=== PATIENT | male | born 1970 | race Caucasian/White ===

== ENCOUNTER 2020-01-31 11:36 | Inpatient (IN) | payer OTHER, SELFPAY ==
[2020-01-31] VITALS (12 sets, daily range): BP systolic 142–237; BP diastolic 80–135; PULSE 70–97; RESP 14–24; TEMP 36.4–36.8; O2SAT 95–99
--- NOTE | 2020-01-31 12:02 | XR_ITS ---
WS: [id number] XR chest 1V portable [id number] REASON FOR EXAM: cp FINDINGS: Comparisons were made to December 29, 2011. The heart is normal in size configuration. The lung bang are well aerated. There is no pulmonary edema. Pneumonia, pleural effusion. There is no pneumothorax. The hilum and apices are normal. No osseous abnormalities. XR/XR chest 1V portable [id number] IMPRESSION: Negative chest for acute findings.
--- NOTE | 2020-01-31 12:02 | ECG_ITS ---
[facility] Test Date: 2020-01-31 Pat Name: Blake Espino Department: Room: Gender: Male Financial Operations Clerk: : 1970 Requested By: Sophie Mistry Order Number: [id number] Yelena MD: Thiago Cerna M.D. Measurements Intervals [place] Rate: 81 P: 45 ME: 151 QRS: -12 QRSD: 101 T: 52 QT: 380 QTc: 443 Interpretive Statements SINUS RHYTHM POSSIBLE LEFT ATRIAL ENLARGEMENT [-0.1mV P WAVE IN V1/V2] No previous ECG available for comparison Electronically Signed On 01-31-2020 19:20:24 CDT by Thiago Cerna M.D. [id number]
[2020-01-31] MEDS: nitroglycerin 0.4 mg sublingual Tablet SUBLINGUAL ×3 (12:18→12:40)
[2020-01-31] MEDS: aspirin 81 mg Chew Tablet 324 MG PO (12:18)
[2020-01-31 12:25] LABS: Basophils # 0.1 10^3/uL (0.0-0.1); Basophils % 0.8 %; Eosinophils # 0.1 10^3/uL (0.0-0.8); Eosinophils % 1.1 %; Hematocrit 43.6 % (42.0-52.0); Hemoglobin 15.1 g/dL (11.7-16.6); Lymphocytes # 1.8 10^3/uL (0.8-4.8); Lymphocytes % 20.2 %; Mean Corpuscular HGB Conc 34.6 g/dL (30.0-36.0); Mean Corpuscular Hemoglobin 32.3 pg (28.0-34.0); Mean Corpuscular Volume 93.4 fL (80-94); Mean Platelet Volume 11.6 fL (7.4-10.4); Monocytes # 0.5 10^3/uL (0.2-0.9); Monocytes % 5.9 %; Neutrophils # 6.5 10^3/uL (1.8-7.7); Neutrophils % 71.6 %; Nucleated Red Blood Cells % 0 %; Platelet Count 166 10^3/cmm (130-400); Red Blood Count 4.67 10^6/uL (4.1-5.3); Red Cell Distribution Width 12.4 % (12.1-15.1)
--- NOTE | 2020-01-31 12:30 | ED_ITS ---
HPI - Chest Pain General: Chief Complaint: Chest Pain Stated Complaint: HIGH BP Time Seen by Provider: 01/31/20 12:02 Source: patient Mode of arrival: ambulatory Limitations: no limitations History of Present Illness: HPI narrative: 49-year-old male who states that over the last 5 days he has been having intermittent chest pains. He states that the pain just start randomly and lasts 15 to 20 minutes. Patient states he currently has pain now that is a pressure type pain. Patient was going over [facility] and had blood pressure of over 200s. He states he has had very hi gh blood pressures. Denies any worsening improving factors at this time. MD complaint: chest pain Associated symptoms: Deny abdominal pain, dyspnea, fever(s), nausea or vomiting Review of Systems Const: Denies: fever(s), chills, body aches or change in appetite Eyes: Denies: blurry vision or eye discomfort ENMT: Denies: throat pain or dental pain Card: Denies: chest pain Resp: Denies: dyspnea GI: Denies: abdominal pain, nausea, vomiting or diarrhea : Denies: dysuria Musc: Denies: neck pain or back pain Skin/Breast: Denies: rash Neuro: Denies: headache(s) Psych: Denies: depression Kristian/Lymph: Denies: easy bruising All/Imm: Denies: urticaria PFSH ED PFSH: Social History Smoking and tobacco status: current every day smoker Physical Exam Const: COMMON NORMALS: no acute distress, patient oriented x3 and healthy appearing HENMT: COMMON NORMALS: normocephalic and atraumatic HEAD & SCALP: normocephalic and atraumatic Eye: COMMON NORMALS: Equal, round and reactive pupils present and EOMs intact bilaterally PUPIL: Yes Equal, round and reactive pupils present Neck/C-Spine: COMMON NORMALS: full ROM and supple Chest: COMMONS NORMALS: normal inspection of the chest and normal palpation of entire chest wall Resp: COMMON NORMALS: normal respiratory effort, No retractions, No use of accessory muscles and clear to auscultation bilaterally AUSCULTATION: clear to auscultation bilaterally Cardio: COMMON NORMALS: regular rate, regular rhythm and No murmurs present (Cardio) RATE: regular rate RHYTHM: regular rhythm GI: COMMON NORMALS: Normal to inspection, nondistended, normoactive bowel sounds present, Soft to palpation, non-tender and no masses PALPATION: Yes Soft to palpation Extremity: COMMON NORMALS: normal to inspection and full ROM Neuro: COMMON NORMALS: patient oriented x3, moves all extremities and no focal motor deficits Psych: COMMON NORMALS: mental status grossly normal, Normal thought process present and cooperative THOUGHT PROCESS: Normal thought process present Skin: COMMON NORMALS: no rashes or lesions noted and no wounds GENERAL SKIN EXAM: no rashes or lesions noted Course Vital Signs: Vital signs: Vital Signs Temperature 98.2 F 01/31/20 11:39 Pulse Rate 74 01/31/20 15:51 Respiratory Rate 14 01/31/20 15:51 Blood Pressure 194/113 01/31/20 15:51 Pulse Oximetry 97 01/31/20 15:51 MDM - Chest Pain MDM Narrative: Medical decision making narrative: Patient presents with high blood pressure along with chest pain. Patient is continued to be hypertensive here and has risk factors for his chest pain. I spoke to hospitalist and will admit at this time. Patient's initial and repeat troponins are negative. Lab Data: Labs: Lab Results 01/31/20 01/31/20 01/31/20 Range/Units 12:15 12:15 12:15 WBC 9.0 (4.0-10.0) 10^3/ uL RBC 4.67 (4.1-5.3) 10^6/u L Hgb 15.1 (11.7-16.6) g/dL Hct 43.6 (42.0-52.0) % MCV 93.4 (80-94) fL MCH 32.3 (28.0-34.0) pg MCHC 34.6 (30.0-36.0) g/dL RDW 12.4 (12.1-15.1) % Plt Count 166 (130-400) 10^3/c mm MPV 11.6 H (7.4-10.4) fL Neut % (Auto) 71.6 % Lymph % (Auto) 20.2 % [place] % (Auto) 5.9 % Eos % (Auto) 1.1 % Baso % (Auto) 0.8 % Neut # (Auto) 6.5 (1.8-7.7) 10^3/u L Lymph # (Auto) 1.8 (0.8-4.8) 10^3/u L [place] # (Auto) 0.5 (0.2-0.9) 10^3/u L Eos # (Auto) 0.1 (0.0-0.8) 10^3/u L Baso # (Auto) 0.1 (0.0-0.1) 10^3/u L Nucleated RBC % (a uto) 0 % Nucleated RBCs # 0.0 /100WBC Sodium 142 (136-145) mmol/L Potassium 3.3 L (3.5-5.1) mmol/L Chloride 103 (98-107) mmol/L Carbon Dioxide 26 (22-29) mmol/L Anion Gap 16.3 (5-19) BUN 8 (6-20) mg/dL Creatinine 0.9 (0.7-1.2) mg/dL GFR Calculation 89.3 L (90-130) mL/min Glucose 119 H (65-115) mg/dL Calculated Osmolal ity 291 (285-295) mOsm/k g Calcium 9.9 (8.5-10.5) mg/dL Total Bilirubin 0.3 (0.15-1.2) mg/dL AST 17 (0-40) U/L ALT 21 (0-41) U/L Alkaline Phosphata se 88 (40-130) IU/L Troponin T Baselin e 10 (0-15) ng/L Troponin T 120 Min thomas (0-15) ng/L Delta Troponin T (0-10) ABS# Total Protein 7.3 (6.6-8.7) g/dL Albumin 4.7 (3.5-5.2) g/dL Globulin 2.6 (1.3-4.6) g/dL 01/31/20 Range/Units 14:10 WBC (4.0-10.0) 10^3/ uL RBC (4.1-5.3) 10^6/u L Hgb (11.7-16.6) g/dL Hct (42.0-52.0) % MCV (80-94) fL MCH (28.0-34.0) pg MCHC (30.0-36.0) g/dL RDW (12.1-15.1) % Plt Count (130-400) 10^3/c mm MPV (7.4-10.4) fL Neut % (Auto) % Lymph % (Auto) % [place] % (Auto) % Eos % (Auto) % Baso % (Auto) % Neut # (Auto) (1.8-7.7) 10^3/u L Lymph # (Auto) (0.8-4.8) 10^3/u L [place] # (Auto) (0.2-0.9) 10^3/u L Eos # (Auto) (0.0-0.8) 10^3/u L Baso # (Auto) (0.0-0.1) 10^3/u L Nucleated RBC % (a uto) % Nucleated RBCs # /100WBC Sodium (136-145) mmol/L Potassium (3.5-5.1) mmol/L Chloride (98-107) mmol/L Carbon Dioxide (22-29) mmol/L Anion Gap (5-19) BUN (6-20) mg/dL Creatinine (0.7-1.2) mg/dL GFR Calculation (90-130) mL/min Glucose (65-115) mg/dL Calculated Osmolal ity (285-295) mOsm/k g Calcium (8.5-10.5) mg/dL Total Bilirubin (0.15-1.2) mg/dL AST (0-40) U/L ALT (0-41) U/L Alkaline Phosphata se (40-130) IU/L Troponin T Baselin e (0-15) ng/L Troponin T 120 Min thomas 10.04 (0-15) ng/L Delta Troponin T 0.04 (0-10) ABS# Total Protein (6.6-8.7) g/dL Albumin (3.5-5.2) g/dL Globulin (1.3-4.6) g/dL Imaging Data^: CXR: Radiologist's impression: [address] [address] XRay Report Signed Patient: Blake Espino Unit #: [id number] : 1970 Age/Sex: 49 / M ADM Date: 01/31/20 Loc: ER Room/Bed: Attending Dr: Ordering Provider/Ordering MD: Sophie Mistry MD Date of Service: 01/31/20 Procedure(s): XR chest 1V portable [id number] Accession Number(s): [id number] Report Number: [id number] WS: [id number] XR chest 1V portable [id number] REASON FOR EXAM: cp FINDINGS: Comparisons were made to December 29, 2011. The heart is normal in size configuration. The lung bang are well aerated. There is no pulmonary edema. Pneumonia, pleural effusion. There is no pneumothorax. The hilum and apices are normal. No osseous abnormalities. XR/XR chest 1V portable [id number] IMPRESSION: Negative chest for acute findings. CT Head: Radiologist's impression: [address] [address] [address] Scan Report Signed Patient: Blake Espino Unit #: [id number] : 1970 Age/Sex: 49 / M ADM Date: Loc: ER Room/Bed: Attending Dr: Ordering Provider/Ordering MD: Sophie Mistry MD Date of Service: 01/31/20 Procedure(s): CT head wo con* [id number] Accession Number(s): [id number] Report Number: [id number] WS: [id number] CT head wo con* [id number] REASON FOR EXAM: mendoza IV CONTRAST ADMINISTERED: None. TOTAL EXAM DLP: 883.[address] scans at [facility] use at least one of these dose optimization techniques: automated exposure control; mA and/or kV adjustment per patient size (includes targeted exams where dose is matched to clinical indication); or iterative reconstruction. FINDINGS: The ethmoid sinuses show inflammatory changes. There is evidence of small areas of air- fluid level in the sphenoid sinuses. The maxillary antrums and frontal sinuses were normal. The schwartz and white matter interfaces were normal. The ventricles are all normal in size and configuration. There is no hemorrhage, mass effect, or infarction. The calvarium appear to be normal. The orbits optic nerves and pituitary were normal. CT/CT head wo con* [id number] IMPRESSION: Low-grade splenoid, ethmoid sinusitis. Otherwise normal CT of the brain. EKG Data^: EKG 1: Attestation: I personally reviewed and interpreted this EKG as follows: EKG interpretation date: 01/31/20 EKG interpretation time: 11:42 Interpretation: nsr hr [address] or t wave abnormalities qrs 101 qtc 418 Discharge Plan Discharge Patient Disposition: Admitted As Inpatient Admit Provider: Brooklynn Jarrell Clinical Impression: Hypertension Chest pain Qualifiers: Chest pain type: unspecified Qualified Code(s): R07.9 - Chest pain, unspecified Condition: Stable Discharge Orders: Discharge Order (Routine); Ordered 01/31/20 Ordered By: Sophie Mistry Discharge Diet: Advance as tolerated Discharge Activity: Resume usual activity Patient Instructions: Chest Pain (ED), Hypertension (ED) Coding Level of Care Code ED Senior Training And Development Rep for Chg Fwd Exam Comprehensive
[2020-01-31] MEDS: hyDRALAzine 20 mg/mL INJ 1 mL IVP (12:39)
[2020-01-31 12:44] LABS: Alanine Aminotransferase 21 U/L (0-41); Albumin Level 4.7 g/dL (3.5-5.2); Alkaline Phosphatase 88 IU/L (40-130); Anion Gap 16.3 (5-19); Aspartate Amino Transferase 17 U/L (0-40); Blood Urea Nitrogen 8 mg/dL (6-20); Calcium 9.9 mg/dL (8.5-10.5); Carbon Dioxide 26 mmol/L (22-29); Chloride 103 mmol/L (98-107); Globulin 2.6 g/dL (1.3-4.6); Glomerular Filtration Rate 89.3 mL/min (90-130); Glucose 119 mg/dL (65-115); Osmolality Calculated 291 mOsm/kg (285-295); Potassium 3.3 mmol/L (3.5-5.1); Sodium 142 mmol/L (136-145); Total Bilirubin 0.3 mg/dL (0.15-1.2); Total Protein 7.3 g/dL (6.6-8.7); Troponin(5th) Baseline 10 ng/L (0-15)
[2020-01-31] MEDS: sodium chloride 0.9% 1,000 ML 999 ML IV (13:02)
[2020-01-31] MEDS: ondansetron 2 mg/ML SDV 2 mL 4 MG IVP (13:02)
--- NOTE | 2020-01-31 14:02 | ECG_ITS ---
[facility] ED Test Date: 2020-01-31 Pat Name: Blake Espino Department: Room: Gender: Male Leasing Professional: : 1970 Requested By: Sophie Mistry Order Number: [id number] Yelena MD: Thiago Cerna M.D. Measurements Intervals [place] Rate: 70 P: 46 SD: 152 QRS: 47 QRSD: 102 T: 59 QT: 398 QTc: 431 Interpretive Statements SINUS RHYTHM Poor R wave progression Compared to ECG 01/31/2020 11:42:37 No significant changes Electronically Signed On 01-31-2020 19:34:23 CDT by Thiago Cerna M.D. [id number]
--- NOTE | 2020-01-31 14:43 | PC.NURSE ---
EKG done at 1440 and shown to ER doctor
[2020-01-31 14:53] LABS: Troponin 5 2HR 10.04 ng/L (0-15); Troponin 5 2HR Delta 0.04 ABS# (0-10)
[2020-01-31] MEDS: ketorolac 30 mg/mL INJ 15 MG IVP (14:56)
--- NOTE | 2020-01-31 15:14 | CT_ITS ---
WS: [id number] CT head wo con* [id number] REASON FOR EXAM: mendoza IV CONTRAST ADMINISTERED: None. TOTAL EXAM DLP: 883.[address] scans at [facility] use at least one of these dose optimization techniques: automat ed exposure control; mA and/or kV adjustment per patient size (includes targeted exams where dose is matched to clinical indication); or iterative reconstruction. FINDINGS: The ethmoid sinuses show inflammatory changes. There is evidence of small areas of air-flui d level in the sphenoid sinuses. The maxillary antrums and frontal sinuses were normal. The schwartz and white matter interfaces were normal. The ventricles are all normal in size and configuration. There is no hemorrhage, mass effect, or infarction. The calvarium appear to be normal. The orbits optic nerves and pituitary were normal. CT/CT head wo con* [id number] IMPRESSION: Low-grade splenoid, ethmoid sinusitis. Otherwise normal CT of the brain.
[2020-01-31] MEDS: HYDROcodone-acetaminophen 7.5-325 mg Tablet 1 TAB PO (15:51)
[2020-01-31] MEDS: hyDRALAzine 20 mg/mL INJ 1 mL 10 MG IVP (15:52)
--- NOTE | 2020-01-31 17:42 | PM.HP ---
Providers/Chief Complaint Admitting Physician: Brooklynn Jarrell MD Primary Care Provider: Britt Arora Chief Complaint: HIGH BP History of Present Illness Blake Espino is a 49 year old male with PMHx of HTN, Morbid obesity, Chronic smoker, BPH, from urgent care center in [facility] following presentation there for evaluation of headaches, chest pain, elevated blood pressure over the past several days. He is at bedside during my assessment in the ER. Patient reports that over the past few days he has had headaches, intermittent substernal chest discomfort, palpitations, and generally been feeling unwell. He states that he has a chronic history of tick fever and typically is prescribed a course of doxycycline with improvement in his symptoms. He intended to see his primary care provider but she is off on vacation so went to the urgent care clinic instead with intention of being evaluated for tick fever and resumption of antibiotics. 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 He denies family or personal history of CAD and has not had any previous cardiac work-up in the past. He does not routinely monitor his blood pressure at home though is aware that his blood pressure is poorly controlled. He is currently taking metoprolol 50 mg once daily and Benicar 40 mg daily. His blood pressure was elevated in the 220/120 range on arrival in the ER. So far he has received 3 doses of nitroglycerin and a total of 30 mg of IV hydralazine with continued hypertensive urgency. Troponins so far have been normal with no noted delta change. CBC and chemistry are within normal limits except for slight hypokalemia with potassium of 3.3, blood sugar of 119. Chest x-ray is unremarkable. CT of the head is also unremarkable for any acute findings. He has significant risk factors for ACS given morbid obesity, chronic smoking, uncontrolled hypertension, so discussed need for stress testing and echo both of which she is agreeable to. Patient is being admitted for further management of hypertensive urgency and appropriate rule out ACS work-up. Review of Systems Const: Denies: fever(s), chills or change in appetite Eyes: Denies: change in vision ENMT: Denies: odynophagia Card: Reports: chest pain and palpitations; Denies: edema, swelling of feet/ankles, lightheadedness or dyspnea on exertion Resp: Denies: dyspnea, productive cough or non-productive cough GI: Denies: abdominal pain, nausea, vomiting, hematemesis, diarrhea or hematochezia : Denies: dysuria or urinary frequency Musc: Denies: back pain Skin/Breast: Denies: rash Neuro: Denies: numbness in extremities, weakness in extremities, difficulty walking or frequent falls Psych: Denies: anxiety Medications/Allergies Home Medications Medication Instructions Recorded Confirmed Last Taken Type acetaminophen [Tylenol Extra 500 - 1,000 mg PO PRN 01/31/20 01/31/20 Unknown History Strength] dexlansoprazole [Dexilant] 60 mg PO DAILY 01/31/20 01/31/20 01/31/20 History doxycycline hyclate 100 mg PO BID 01/31/20 01/31/20 01/28/20 History ibuprofen 200 - 800 mg PO PRN 01/31/20 01/31/20 Unknown History metoprolol succinate 50 mg PO QPM 01/31/20 01/31/20 01/30/20 History metoprolol succinate 100 mg PO DAILY #30 tab 01/31/20 Unknown Rx olmesartan 40 mg PO DAILY 01/31/20 01/31/20 01/31/20 History tamsulosin 0.4 mg PO BID 01/31/20 01/31/20 01/31/20 History Allergies Allergy/AdvReac Type Severity Reaction Status Date / Time No Known Allergies Allergy Verified 01/31/20 12:17 PFSH Acute PFSH: Medical History GERD (gastroesophageal reflux disease) Hypertension Morbid obesity Smoker Surgical History H/O arthroscopic knee surgery Family History Mother Diabetes Denies family history of CAD (coronary artery disease) Stroke Social History (Updated 01/31/20 @ 19:44 by Brooklynn Jarrell MD) Smoking and tobacco status: current every day smoker cigarettes [ Other cigarette details: 1-2 PPD ] Alcohol intake: current Alcohol intake frequency: 0-2 Drinks per Day Alcohol type: beer Substance/Drug Use: never Household members: significant other Housing: House Marital status: Current occupational status: employed Current occupation: sprinkler worker Vitals/I&O/Wt Last Vital Signs Temp 97.6 F 01/31/20 16:58 Pulse 94 01/31/20 17:05 Resp 14 01/31/20 17:05 BP 170/91 01/31/20 17:05 Pulse Ox 96 01/31/20 17:05 01/31/20 01/31/20 01/31/20 06:59 14:59 22:59 Intake Total 1000 / 1000 Balance 1000 / 1000 Physical Exam Const: COMMON NORMALS: no acute distress, patient oriented x3 and alert GENERAL APPEARANCE: cooperative and comfortable NUTRITIONAL APPEARANCE: obese morbidly obese ORIENTATION/CONSCIOUSNESS: Yes awake HENMT: COMMON NORMALS: normocephalic, atraumatic, hearing grossly normal bilaterally and moist oral mucous membranes HEAD & SCALP: normocephalic and atraumatic Eye: COMMON NORMALS: Equal, round and reactive pupils present, EOMs intact bilaterally and conjunctivae normal CONJUNCTIVA: Yes conjunctivae normal PUPIL: Yes Equal, round and reactive pupils present Neck/C-Spine: COMMON NORMALS: full ROM GENERAL: Yes normal visual inspection and Yes trachea midline Chest: COMMONS NORMALS: normal palpation of entire chest wall CHEST: Yes Symmetrical chest wall rise Resp: COMMON NORMALS: normal respiratory effort, No retractions, No use of accessory muscles and clear to auscultation bilaterally EFFORT & INSPECTION: Yes able to speak in complete sentences, Yes symmetric chest movement and No tachypneic AUSCULTATION: clear to auscultation bilaterally OTHER: -on RA Cardio: COMMON NORMALS: regular rate, regular rhythm, S1 normal heart sound present, S2 normal heart sound present and No murmurs present (Cardio) RATE: regular rate RHYTHM: regular rhythm HEART SOUNDS: S1 normal heart sound present and S2 normal heart sound present OTHER: -hypertensive GI: COMMON NORMALS: Normal to inspection, nondistended, normoactive bowel sounds present, Soft to palpation and non-tender INSPECTION: Yes central obesity PALPATION: Yes Soft to palpation Extremity: COMMON NORMALS: normal to inspection, full ROM, no clubbing, cyanosis or edema and no pedal edema Neuro: COMMON NORMALS: patient oriented x3, moves all extremities, no focal motor deficits and no sensory deficits noted Psych: COMMON NORMALS: mental status grossly normal, Normal thought process present, cooperative, normal affect and speech normal SPEECH: Yes normal speech THOUGHT PROCESS: Normal thought process present Skin: COMMON NORMALS: no rashes or lesions noted, no jaundice, no petechiae and no mottling GENERAL SKIN EXAM: no rashes or lesions noted Data : 01/31/20 12:15 01/31/20 12:15 A&P Assessment and plan (1) Hypertensive urgency: -has had poorly controlled BP for quite some time -received hydralazine 30 mg IV in ED -continue to monitor vital signs closely, would avoid aggressive BP control -telemetry monitoring -resume BB, ARB; would add CCB; continue hydralazine PRN Status: Acute (2) Chest pain: -has significant risk factors for ACS including morbid obesity, HTN, chronic smoker, EtOH use -no prior cardiac workup so will order Echo and nuclear stress test; NPO after midnight -ROSEMARY -check TSH, lipid panel, A1c for risk stratification -noted troponins, no significant delta Status: Acute Qualifiers: Chest pain type: unspecified Qualified Code(s): R07.9 - Chest pain, unspecified (3) Hypertension: -poorly controlled -as noted above Status: Chronic Qualifiers: Hypertension type: essential hypertension Qualified Code(s): I10 - Essential (primary) hypertension (4) GERD (gastroesophageal reflux disease): -resume PPI Status: Chronic Qualifiers: Esophagitis presence: esophagitis presence not specified Qualified Code(s): K21.9 - Gastro-esophageal reflux disease without esophagitis (5) Smoker: -1-2 PPD -nicotine replacement therapy -smoking cessation encouraged Status: Chronic (6) Morbid obesity: Status: Chronic Additional A&P Information -GI ppx with PPI -DVT ppx not needed as low risk, encourage ambulation -NPO after midnight, IVF -Dispo: home -Code status: FULL code Attestations Medical Necessity Statement*: Blake Espino's hospital stay will be less than 2 midnights for management of hypertensive urgency, workup for chest pain r/o ACS including stress testing. Time Spent in Patient Care: Greater than 35 minutes (>than 50% of time spent in counselling and/or direct pt care on unit). Coding Level of Care Code Acute Continuity Coordinator for Chg Fwd Exam Comprehensive Diagnoses Hypertensive urgency I16.0 Chest pain R07.9 Chest pain type: unspecified Hypertension I10 Hypertension type: essential hypertension GERD (gastroesophageal reflux disease) K21.9 Esophagitis presence: esophagitis presence not specified Smoker F17.200 Morbid obesity E66.01
--- NOTE | 2020-01-31 18:02 | ECG_ITS ---
[facility] Test Date: 2020-01-31 Pat Name: Blake Espino Department: Room: 106 Gender: Male Service Delivery Management Consultant: : 1970 Requested By: Sophie Mistry Order Number: [id number] Yelena MD: Thiago Cerna M.D. Measurements Intervals [place] Rate: 79 P: 51 NE: 159 QRS: 17 QRSD: 101 T: 48 QT: 407 QTc: 467 Interpretive Statements SINUS RHYTHM POSSIBLE LEFT ATRIAL ENLARGEMENT [-0.1mV P WAVE IN V1/V2] Compared to ECG 01/31/2020 14:40:41 No significant changes Electronically Signed On 01-31-2020 19:40:45 CDT by Thiago Cerna M.D. [id number]
[2020-01-31] MEDS: amlodipine 5 mg Tablet 2.5 MG PO (18:33)
[2020-01-31] MEDS: potassium chloride ER 10 mEq Tablet 40 MEQ PO (18:33)
[2020-01-31] MEDS: metoprolol tartrate 50 mg Tablet PO (18:33)
[2020-01-31] MEDS: doxycycline 100 mg Tablet PO (18:33)
[2020-01-31 19:39] LABS: Troponin 5 6HR 12.46 ng/L (0-15); Troponin 5 6HR Delta 2.46 ng/L (0-12)
--- NOTE | 2020-01-31 19:53 | PC.NURSE ---
ROunding: PAtient assessment completed. Patient stated he wanted his nicotine patch at bedtime. Patient is alert and oriented. Will continue to montior. Patient denies any needs at this time.
[2020-01-31] MEDS: nicotine 21 mg Patch 1 PATCH TRANSDERMA (20:31)
[2020-01-31] MEDS: sodium chlor 0.9% + KCl 20 mEq 20 MEQ/1,000 ML BAG 75 MEQ IV (20:35)
[2020-02-01] VITALS (24 sets, daily range): BP systolic 141–238; BP diastolic 85–122; PULSE 66–100; RESP 14–21; TEMP 36.3–36.8; O2SAT 94–97
--- NOTE | 2020-02-01 05:16 | PC.NURSE ---
End of shift: Patient states he did not rest well due to being in a new place. Patient has had no complaints of pain to me. Patient Vitals have remained stable and is alert and oriented. Call light within reach. bed in low position, and side rails up x2. Will continue to monitor.
--- NOTE | 2020-02-01 06:00 | ECG_ITS ---
[facility] Test Date: 2020-02-01 Pat Name: Blake Espino Department: Room: 106 Gender: Male Fluorescent Lighting Model Maker: : 1970 Requested By: Brooklynn Jarrell Order Number: [id number] Yelena MD: Bao Jewell M.D. Interpretive Statements NAME OF STUDY: LEXISCAN SESTAMIBI STRESS TEST INDICATION: Chest Pain, LEXISCAN STRESS TEST ORDERING PHYSICIAN: Unknown CLINICAL INFORMATION: Unknown INTERPRETATION: 1. The patient was brought to the laboratory where Lexiscan was infused over 20 seconds. The resting blood pressure was 210/105. Maximum blood pressure was 214/110. The resting heart rate was 80 beats per minute. The maximum heart rate is 124 beats per minute. 2. The baseline electrocardiogram reveals sinus rhythm with a left atrial abnormality and poor R wave progression 3. With Lexiscan infusion, there were no ST segment changes to suggest ischemia. 4. The patient experienced no symptoms or arrhythmias during the examination. CONCLUSION: 1. Unremarkable Lexiscan infusion. 2. Nuclear imaging to follow. Electronically Signed On 02-01-2020 10:06:32 CDT by Bao Jewell M.D. [id number]
[2020-02-01 06:02] LABS: Basophils # 0.1 10^3/uL (0.0-0.1); Basophils % 0.8 %; Eosinophils # 0.2 10^3/uL (0.0-0.8); Eosinophils % 2.6 %; Hematocrit 43.4 % (42.0-52.0); Hemoglobin 14.5 g/dL (11.7-16.6); Lymphocytes # 2.6 10^3/uL (0.8-4.8); Lymphocytes % 29.7 %; Mean Corpuscular HGB Conc 33.4 g/dL (30.0-36.0); Mean Corpuscular Volume 95.8 fL (80-94); Mean Platelet Volume 12.2 fL (7.4-10.4); Monocytes # 0.7 10^3/uL (0.2-0.9); Monocytes % 7.3 %; Neutrophils # 5.2 10^3/uL (1.8-7.7); Neutrophils % 59.1 %; Nucleated Red Blood Cells % 0 %; Platelet Count 170 10^3/cmm (130-400); Red Blood Count 4.53 10^6/uL (4.1-5.3); Red Cell Distribution Width 12.7 % (12.1-15.1); White Blood Count 8.9 10^3/uL (4.0-10.0)
[2020-02-01 06:18] LABS: Anion Gap 14.6 (5-19); Blood Urea Nitrogen 12 mg/dL (6-20); Calcium 9.7 mg/dL (8.5-10.5); Carbon Dioxide 25 mmol/L (22-29); Chloride 105 mmol/L (98-107); Glomerular Filtration Rate 89.3 mL/min (90-130); Glucose 97 mg/dL (65-115); Magnesium 1.5 mg/dL (1.7-2.3); Osmolality Calculated 288 mOsm/kg (285-295); Potassium 3.6 mmol/L (3.5-5.1); Sodium 141 mmol/L (136-145)
[2020-02-01 06:26] LABS: Estmated Average Glucose 105; Hemoglobin A1C 5.3 % (4.0-6.0)
[2020-02-01 06:29] LABS: Chol HDL Ratio 5.82 mg/dL (1.0-5.00); Cholesterol 192 mg/dL (0-200); HDL Cholesterol 33 mg/dL (60-100); LDL Cholesterol Calculated 141 mg/dL (50-129); LDL HDL Ratio 4.27 RATIO (0.00-3.22); Triglycerides 89 mg/dL (0-150)
--- NOTE | 2020-02-01 07:30 | PC.NURSE ---
PATIENT TAKEN TO STRESS TEST VIA WHEELCHAIR WITH ORSE, PATIENT TRANSPORT.
[2020-02-01] MEDS: metoprolol tartrate 50 mg Tablet PO (08:28)
[2020-02-01] MEDS: losartan 50 mg Tablet PO (08:28)
[2020-02-01] MEDS: amlodipine 5 mg Tablet 2.5 MG PO ×2 (08:28→11:43)
[2020-02-01] MEDS: regadenoson 0.4 Mg/5 ml Syringe IVP (08:30)
--- NOTE | 2020-02-01 10:00 | P.DS_ITS ---
Discharge Providers Date of Admission: 01/31/20 15:40 Date of Discharge: February 03, 2020 Attending Provider at Admission: Brooklynn Jarrell MD Attending Provider at Discharge: Brooklynn Jarrell MD Primary Care Provider: Britt Arora NP Diagnoses at Discharge Discharge Diagnosis (1) Hypertensive urgency: Status: Resolved Problem details: -has had poorly controlled BP for quite some time -BP better controlled overnight, now uncontrolled -continue to monitor vital signs closely, would avoid aggressive BP control -telemetry monitoring -on BB, ARB, CCB, Clonidine, hydralazine PRN; added low dose HCTZ -with continued significant hypertension, chest pain, YANEZ; on NTG drip; wean as tolerated -repeat CXR due to noted tachypnea -US abdomen to r/o AAA done, pending report (PCP to follow up) -does not meet strict criteria to screen for renovascular HTN as he has been uncontrolled hypertensive consistently, has normal renal function, prior US abdomen from several yrs ago shows symmetrical kidneys, normal aorta -suspect underlying MORGAN, sleep study as outpatient; undiagnosed and untreated MORGAN may make BP control challenging -if continued hypertensive urgency despite multiple agents, would consider cardiology evaluation as outpatient (2) Chest pain: Status: Acute Problem details: -has significant risk factors for ACS including morbid obesity, HTN, chronic smoker, EtOH use -no prior cardiac workup; Echo: EF=60%, no RWMA; nuclear stress test-small sized perfusion abnormality of mild severity of apical lateral wall which may represent small area of ischemia in circumflex artery territory vs. attenuation artifact -ROSEMARY -noted TSH, lipid panel, A1c -noted troponins, no significant delta Qualifiers: Chest pain type: unspecified Qualified Code(s): R07.9 - Chest pain, unspecified (3) Hypertension: Status: Chronic Problem details: -poorly controlled -as noted above -low salt diet as tolerated Qualifiers: Hypertension type: essential hypertension Qualified Code(s): I10 - Essential (primary) hypertension (4) GERD (gastroesophageal reflux disease): Status: Chronic Problem details: -on PPI Qualifiers: Esophagitis presence: esophagitis presence not specified Qualified Code(s): K21.9 - Gastro-esophageal reflux disease without esophagitis (5) Smoker: Status: Chronic Problem details: -1-2 PPD -nicotine replacement therapy -smoking cessation encouraged (6) Morbid obesity: Status: Chronic Reason for Visit Reason for Visit: HIGH BP Hospital Course Hospital Course: Patient was admitted to the cardiac stepdown unit and placed on telemetry monitoring. He presented with hypertensive urgency on blood pressure was closely monitored with addition and titration of antihypertensives for more optimal blood pressure control. To prevent increased risk of adverse outcome including stroke, aggressive blood pressure control was not pursued but rather more consistent and gradual decrease. Due to complaints of chest pain and risk factors including chronic smoking, uncontrolled blood pressure and morbid obesity he had stress testing and echo done as noted above. Troponins were trended and no significant delta noted. He is encouraged to monitor his blood pressure once daily and keep a log for review with his primary care provider to determine if additional adjustments need to be made to his oral antihypertensive regimen. Risk stratification was done with A1c and TSH both of which were normal as well as a lipid panel which showed elevated LDL so would benefit from addition of statin based on ASCVD risk score of 26%. Smoking cessation, alcohol cessation and weight loss strongly encouraged. Patient counseled on need to seek medical attention immediately should any of his symptoms particularly in terms of chest pain recur. He has had US abdomen done to screen for AAA with results pending and follow up on this can be done by PCP. Discharge was delayed due to need for BP control, in fact, he ended up requiring NTG drip for some time due to symptomatic hypertensive urgency. He will be on several antihypertensive agents with the goal of consistently controlling his BP before hopefully weaning some of them off. Of note, patient has sleep study ordered to evaluate for underlying MORGAN which may be contributing to difficult to control HTN. Discharge Summary: -Patient to follow-up with his primary care provider within 1 week. He is encouraged to continue to monitor his blood pressure at home and keep a log for review during his follow-up visit Physical Exam Const: COMMON NORMALS: no acute distress, patient oriented x3 and alert GENERAL APPEARANCE: cooperative and comfortable NUTRITIONAL APPEARANCE: obese morbidly obese ORIENTATION/CONSCIOUSNESS: Yes awake HENMT: COMMON NORMALS: normocephalic, atraumatic, hearing grossly normal bilaterally and moist oral mucous membranes HEAD & SCALP: normocephalic and atraumatic Eye: COMMON NORMALS: Equal, round and reactive pupils present, EOMs intact bilaterally and conjunctivae normal CONJUNCTIVA: Yes conjunctivae normal PUPIL: Yes Equal, round and reactive pupils present Neck/C-Spine: COMMON NORMALS: full ROM GENERAL: Yes normal visual inspection and Yes trachea midline Chest: COMMONS NORMALS: normal palpation of entire chest wall CHEST: Yes Symmetrical chest wall rise Resp: COMMON NORMALS: normal respiratory effort, No retractions, No use of accessory muscles and clear to auscultation bilaterally EFFORT & INSPECTION: Yes able to speak in complete sentences, Yes symmetric chest movement and No tachypneic AUSCULTATION: clear to auscultation bilaterally OTHER: -on RA Cardio: COMMON NORMALS: regular rate, regular rhythm, S1 normal heart sound present, S2 normal heart sound present and No murmurs present (Cardio) RATE: regular rate RHYTHM: regular rhythm HEART SOUNDS: S1 normal heart sound present and S2 normal heart sound present OTHER: -hypertensive GI: COMMON NORMALS: Normal to inspection, nondistended, normoactive bowel sounds present, Soft to palpation and non-tender INSPECTION: Yes central obesity PALPATION: Yes Soft to palpation Extremity: COMMON NORMALS: normal to inspection, full ROM, no clubbing, cyanosis or edema and no pedal edema Neuro: COMMON NORMALS: patient oriented x3, moves all extremities, no focal motor deficits and no sensory deficits noted SENSORIUM/ORIENTATION: Yes alert Psych: COMMON NORMALS: mental status grossly normal, Normal thought process present, cooperative, normal affect and speech normal SPEECH: Yes normal speech THOUGHT PROCESS: Normal thought process present Skin: COMMON NORMALS: no rashes or lesions noted, no jaundice, no petechiae and no mottling GENERAL SKIN EXAM: no rashes or lesions noted Discharge Data Data Completed and Pending: Completed Studies During Hospitalization Category Date Time Status CT head wo con* 7 0450 Urgent Cat Scan 01/31/20 15:14 Completed Sestamibi Stress Test Request Routi ne Exams 02/01/20 06:00 Draft XR chest 1V ayse ble [id number] Stat Exams 01/31/20 12:02 Completed CV echo complete* [id number] Routine Ultrasound 02/01/20 17:37 Completed Pending at discharge Category Date Time Status Sestamibi Stress Test Request Routi ne Exams 01/31/20 17:37 Stop Req Tick Panel Stat Lab 01/31/20 15:50 Received NM sofia perf SPECT r/s* [id number] Routin e Nuc Med 02/01/20 17:39 Taken Labs from last 24 hours 02/01/20 02/01/20 02/01/20 05:43 05:43 05:43 WBC RBC Hgb Hct MCV MCH MCHC RDW Plt Count MPV Neut % (Auto) Lymph % (Auto) Robertson % (Auto) Eos % (Auto) Baso % (Auto) Neut # (Auto) Lymph # (Auto) Robertson # (Auto) Eos # (Auto) Baso # (Auto) Nucleated RBC % (a uto) Nucleated RBCs # Sodium 141 Potassium 3.6 Chloride 105 Carbon Dioxide 25 Anion Gap 14.6 BUN 12 Creatinine 0.9 GFR Calculation 89.3 L Glucose 97 Estimat Average Gl ucose 105 Hemoglobin A1c 5.3 Calculated Osmolal ity 288 Calcium 9.7 Magnesium 1.5 L Total Bilirubin AST ALT Alkaline Phosphata se Troponin I 6 Hour Troponin I Hi Sens Del Troponin T Baselin e Troponin T 120 Min [place] Troponin T Total Protein Albumin Globulin Triglycerides 89 Cholesterol 192 LDL Cholesterol, C alc 141 H HDL Cholesterol 33 L LDL/HDL Ratio 4.27 H Cholesterol/HDL Ra keri 5.82 H TSH 2.10 02/01/20 01/31/20 01/31/20 05:43 18:15 14:10 WBC 8.9 RBC 4.53 Hgb 14.5 Hct 43.4 MCV 95.8 H MCH 32.0 MCHC 33.4 RDW 12.7 Plt Count 170 MPV 12.2 H Neut % (Auto) 59.1 Lymph % (Auto) 29.7 Robertson % (Auto) 7.3 Eos % (Auto) 2.6 Baso % (Auto) 0.8 Neut # (Auto) 5.2 Lymph # (Auto) 2.6 Robertson # (Auto) 0.7 Eos # (Auto) 0.2 Baso # (Auto) 0.1 Nucleated RBC % (a uto) 0 Nucleated RBCs # 0.0 Sodium Potassium Chloride Carbon Dioxide Anion Gap BUN Creatinine GFR Calculation Glucose Estimat Average Gl ucose Hemoglobin A1c Calculated Osmolal ity Calcium Magnesium Total Bilirubin AST ALT Alkaline Phosphata se Troponin I 6 Hour 12.46 Troponin I Hi Sens Del 2.46 Troponin T Baselin e Troponin T 120 Min [place] 10.04 Delta Troponin T 0.04 Total Protein Albumin Globulin Triglycerides Cholesterol LDL Cholesterol, C alc HDL Cholesterol LDL/HDL Ratio Cholesterol/HDL Ra keri TSH 01/31/20 01/31/20 01/31/20 12:15 12:15 12:15 WBC 9.0 RBC 4.67 Hgb 15.1 Hct 43.6 MCV 93.4 MCH 32.3 MCHC 34.6 RDW 12.4 Plt Count 166 MPV 11.6 H Neut % (Auto) 71.6 Lymph % (Auto) 20.2 Robertson % (Auto) 5.9 Eos % (Auto) 1.1 Baso % (Auto) 0.8 Neut # (Auto) 6.5 Lymph # (Auto) 1.8 Robertson # (Auto) 0.5 Eos # (Auto) 0.1 Baso # (Auto) 0.1 Nucleated RBC % (a uto) 0 Nucleated RBCs # 0.0 Sodium 142 Potassium 3.3 L Chloride 103 Carbon Dioxide 26 Anion Gap 16.3 BUN 8 Creatinine 0.9 GFR Calculation 89.3 L Glucose 119 H Estimat Average Gl ucose Hemoglobin A1c Calculated Osmolal ity 291 Calcium 9.9 Magnesium Total Bilirubin 0.3 AST 17 ALT 21 Alkaline Phosphata se 88 Troponin I 6 Hour Troponin I Hi Sens Del Troponin T Baselin e 10 Troponin T 120 Min [place] Troponin T Total Protein 7.3 Albumin 4.7 Globulin 2.6 Triglycerides Cholesterol LDL Cholesterol, C alc HDL Cholesterol LDL/HDL Ratio Cholesterol/HDL Ra keri TSH Vitals: Last Vital Signs Temp 97.6 F 02/01/20 08:00 Pulse 100 02/01/20 08:20 Resp 18 02/01/20 08:00 BP 198/98 02/01/20 08:28 Pulse Ox 97 02/01/20 08:00 Discharge Plan Discharge Patient Disposition: Home, Self-Care Condition: Stable Prescriptions: New clonidine HCl 0.1 mg Tablet 0.2 mg PO BID 30 Days Qty: 120 RF: 0 metoprolol tartrate 50 mg Tablet 75 mg PO BID 30 Days Qty: 90 RF: 0 hydrochlorothiazide 25 mg Tablet 12.5 mg PO DAILY Qty: 30 RF: 0 amlodipine 10 mg tablet 10 mg PO DAILY Qty: 30 RF: 0 losartan 100 mg tablet 100 mg PO DAILY Qty: 30 RF: 0 atorvastatin 40 mg tablet 40 mg PO BEDTIME Qty: 30 RF: 0 Continued doxycycline hyclate 100 mg capsule 100 mg PO BID RF: 0 Tylenol Extra Strength 500 mg Tablet 500 - 1,000 mg PO PRN RF: 0 tamsulosin 0.4 mg capsule 0.4 mg PO BID RF: 0 ibuprofen 200 mg Tablet 200 - 800 mg PO PRN RF: 0 Dexilant 60 mg capsule,biphase delayed releas 60 mg PO DAILY RF: 0 Discontinued metoprolol succinate 50 mg tablet extended release 24 hr 50 mg PO QPM RF: 0 olmesartan 40 mg tablet 40 mg PO DAILY RF: 0 Discharge Orders: Discharge Order (Routine); Ordered 01/31/20 Ordered By: Sophie Mistry Other Ambulatory Orders: Sleep Study W Sleep Stage (Routine) Timeframe: 1 Month Location: None Selected Ordered By: Brooklynn Jarrell Referrals: Ulysses,DAVE [place] [Referring] - 4-7 days (Post hospital discharge follow up. Treated for hypertensive urgency, addition and adjustment of oral antihypertensives. Had Echo and nuclear stress testing, both unremarkable. Please follow up on results of US abdomen done to screen for AAA. ) Discharge Diet: Low Salt Discharge Activity: Increase activity as tolerated and May return to work/school without restrictions Patient Instructions: Chest Pain (ED), Hypertension (ED) Discharge Attestations Time Spent in Discharge Care*: greater than 30 min Specific Discharge Activities: Specific discharge activities: educating patient, discussing with case mgr/social workers/dc planners, documenting/other paperwork and evaluating patient/reviewing data Time Spent in Smoking Cessation: Time spent discussing smoking cessation with patient: 3 to 10 minutes Status at Discharge: Cognitive status at discharge: cognitively intact , Behavioral status at discharge: cooperative , Functional status at discharge: independent ambulation Overall status at discharge: patient is back to baseline Quality Metrics Clinical Quality Measures During this hospital stay, did patient experience: None Coding Level of Care Code Acute Data Center Engineer for [facility] Fwd Exam Comprehensive Diagnoses Hypertensive urgency I16.0 Chest pain R07.9 Chest pain type: unspecified Hypertension I10 Hypertension type: essential hypertension GERD (gastroesophageal reflux disease) K21.9 Esophagitis presence: esophagitis presence not specified Smoker F17.200 Morbid obesity E66.01
[2020-02-01] MEDS: doxycycline 100 mg Tablet PO ×2 (10:11→17:05)
[2020-02-01] MEDS: tamsulosin 0.4 mg Capsule PO ×2 (10:11→17:05)
[2020-02-01] MEDS: nicotine 21 mg Patch 1 PATCH TRANSDERMA (10:11)
[2020-02-01] MEDS: hyDRALAzine 20 mg/mL INJ 1 mL 10 MG IVP ×2 (10:13→13:37)
[2020-02-01] MEDS: pantoprazole DR 40 mg Tablet PO (10:13)
[2020-02-01] MEDS: metoprolol tartrate 25 mg Tablet 12.5 MG PO (11:43)
[2020-02-01 12:20] LABS: Lyme AB Screen <0.90 index
--- NOTE | 2020-02-01 13:52 | PC.CHAP ---
Pastoral Care Encounter/Spiritual Assessment Type of Contact [] Declined hide dropper visit [] Patient/Family/Request visit [] Outpatient visit [] Follow-up visit [] Physician referral [] Code/Alert [X] Routine visit [] Staff referral [] Actively dying [] Patient sleeping [] Family support [] [] Out of room [] Palliative care [] [] Receiving care in room [] Pre-surgical visit [] Trauma [] Long length of stay [] ICU visit [] Other: Relational/Emotional Strength [] Patient feels connected with others/family/visitors/staff [] Distress [] Loneliness/isolation [] Abandonment Spirituality of Patient [] Person of Faviola [] Attends Latter-Day of their Faviola [] Believes in Prayer [] Reads Bible or Methodist materials [] There are Spiritual issues to be addressed A Auxiliary Interventions [] Prayer [] Active listening [] Non-anxious presence [] Spiritual/emotional support [] Crisis/trauma care [] Spiritual counseling [] Bereavement support [] Provided bereavement packet [] Provided Bible/devotional materials [] Provided toy/stuffed animal, coloring book to patient or family member [] Provided Communion [] Anointing/[place] [] Salvation [] Completed spiritual assessment [] Other: Impact on Illness or Injury [] Angry [] Fearful [] Anxious [] Often cries [] Exhaustion [] Unable to work [] Unable to attend catholic [] Unable to walk/stand [] Unable to read [] Unable to drive [] Unable to eat/drink [] Unable to sleep [] Unable to be with family [] Patient intubated [] Other: Summary Time spent with patient
--- NOTE | 2020-02-01 15:04 | PC.NURSE ---
DISCUSSED PATIENT BLOOD PRESSURE WITH DR. CANTRELL. AWAITING ORDERS FOR CATAPRES.
[2020-02-01] MEDS: cloNIDine 0.1 mg Tablet PO ×2 (15:10→17:04)
--- NOTE | 2020-02-01 16:12 | P.PN_ITS ---
Subjective Subjective: Interval history: Patient seen earlier this AM, BP much better overnight, hypertensive again this AM. Had Echo and stress testing done. BP continues to be uncontrolled despite multiple oral medications and IV hydralazine. This afternoon, patient is c/o persistent YANEZ, chest tightness, so will start on NTG drip. Poor sleep last night, appears somewhat flushed and fatigued. Medications: Reviewed: Yes Medication Review Details: Active Medications Generic Name Dose Route Start Last Admin Trade Name Freq PRN Reason Stop Dose Admin Acetaminophen 650 mg 01/31/20 17:37 Tylenol PO Q6H PRN Mild/Mod Pain Or Temp >/= 101 Aminophylline 25 mg 02/01/20 07:14 Aminophylline IVP 02/02/20 07:13 Q2M PRN see dose instruct ions Amlodipine Besylat e 5 mg 02/02/20 09:00 Norvasc PO DAILY [facility] Atorvastatin Calci um 40 mg 02/01/20 21:00 Lipitor PO BEDTIME PARAS Clonidine HCl 0.1 mg 02/01/20 14:55 02/01/20 15:10 Catapres PO 0.1 mg BID PARAS Administration Doxycycline Monohy drate 100 mg 01/31/20 18:00 02/01/20 10:11 Vibramycin PO 100 mg BID PARAS Administration Protocol Hydralazine HCl 10 mg 01/31/20 17:40 02/01/20 13:37 Apresoline IVP 10 mg Q4H PRN Administration Elevated BP Nitroglycerin/Dext corazon 50 mg in 250 mls @ 0 mls/hr 02/01/20 16:[address] ip IV .Q0M [facility] Protocol Per Protocol Lorazepam 1 mg 02/01/20 14:51 Ativan IVP Q8H PRN ANXIETY Losartan Potassium 50 mg 02/01/20 09:00 02/01/20 08:28 Cozaar PO 50 mg DAILY PARAS Administration Metoprolol Tartrat e 75 mg 02/01/20 18:00 Lopressor PO BID PARAS Morphine Sulfate 2 mg 01/31/20 17:37 Morphine IVP Q4H PRN SEVERE PAIN Nicotine 1 patch 01/31/20 18:45 02/01/20 10:11 Nicoderm 21 Mg P atch TRANSDERMA 1 patch DAILY PARAS Administration Nitroglycerin 0.4 mg 01/31/20 12:02 01/31/20 12:40 Nitrostat SUBLINGUAL 0.4 tab Q5M PRN Administration CHEST PAIN Nitroglycerin 0.4 mg 02/01/20 07:14 Nitrostat SUBLINGUAL 02/02/20 07:13 Q5M PRN CHEST PAIN Ondansetron HCl 4 mg 01/31/20 17:37 Zofran IVP Q8H PRN vomiting, or N/V if npo Ondansetron HCl 4 mg 02/01/20 07:14 Zofran IVP Q2M PRN NAUSEA Pantoprazole Sodiu m 40 mg 02/01/20 09:00 02/01/20 10:13 Protonix PO 40 mg DAILY PARAS Administration Tamsulosin HCl 0.4 mg 01/31/20 18:00 02/01/20 10:11 Flomax PO 0.4 mg BID PARAS Administration No Known Allergies Allergy (Verified 01/31/20 12:17) Vitals/I&O/Wt Last Vital Signs Temp 97.6 F 02/01/20 15:42 Pulse 74 02/01/20 15:42 Resp 15 02/01/20 15:42 BP 200/118 02/01/20 15:42 Pulse Ox 96 02/01/20 15:42 02/01/20 02/01/20 02/01/20 06:59 14:59 22:59 Intake Total 600 / 1720 240 / 240 Balance 600 / 1720 240 / 240 Weight last 48 hrs Weight 132.931 kg Physical Exam Const: COMMON NORMALS: no acute distress, patient oriented x3 and alert GENERAL APPEARANCE: cooperative NUTRITIONAL APPEARANCE: obese morbidly obese ORIENTATION/CONSCIOUSNESS: Yes awake OTHER: -appears fatigued and somewhat flushed HENMT: COMMON NORMALS: normocephalic, atraumatic, hearing grossly normal bilaterally and moist oral mucous membranes HEAD & SCALP: normocephalic and atraumatic Eye: COMMON NORMALS: Equal, round and reactive pupils present, EOMs intact bilaterally and conjunctivae normal CONJUNCTIVA: Yes conjunctivae normal PUPIL: Yes Equal, round and reactive pupils present Neck/C-Spine: COMMON NORMALS: full ROM GENERAL: Yes normal visual inspection and Yes trachea midline Chest: COMMONS NORMALS: normal palpation of entire chest wall CHEST: Yes Symmetrical chest wall rise Resp: COMMON NORMALS: normal respiratory effort, No retractions, No use of accessory muscles and clear to auscultation bilaterally EFFORT & INSPECTION: Yes able to speak in complete sentences, Yes symmetric chest movement and No tachypneic AUSCULTATION: clear to auscultation bilaterally OTHER: -on RA Cardio: COMMON NORMALS: regular rate, regular rhythm, S1 normal heart sound present, S2 normal heart sound present and No murmurs present (Cardio) RATE: regular rate RHYTHM: regular rhythm HEART SOUNDS: S1 normal heart sound present and S2 normal heart sound present OTHER: -hypertensive GI: COMMON NORMALS: Normal to inspection, nondistended, normoactive bowel sounds present, Soft to palpation and non-tender INSPECTION: Yes central obesity PALPATION: Yes Soft to palpation Extremity: COMMON NORMALS: normal to inspection, full ROM, no clubbing, cyanosis or edema and no pedal edema Neuro: COMMON NORMALS: patient oriented x3, moves all extremities, no focal motor deficits and no sensory deficits noted SENSORIUM/ORIENTATION: Yes alert Psych: COMMON NORMALS: mental status grossly normal, Normal thought process present, cooperative, normal affect and speech normal SPEECH: Yes normal speech THOUGHT PROCESS: Normal thought process present Skin: COMMON NORMALS: no rashes or lesions noted, no jaundice, no petechiae and no mottling GENERAL SKIN EXAM: no rashes or lesions noted Data : 02/01/20 05:43 02/01/20 05:43 A&P Assessment and plan (1) Hypertensive urgency: -has had poorly controlled BP for quite some time -BP better controlled overnight, now uncontrolled -continue to monitor vital signs closely, would avoid aggressive BP control -telemetry monitoring -on BB, ARB; would add CCB; continue hydralazine PRN -with continued significant hypertension, chest pain, YANEZ; will start on NTG drip Status: Acute (2) Chest pain: -has significant risk factors for ACS including morbid obesity, HTN, chronic smoker, EtOH use -no prior cardiac workup; Echo: EF=60%, no RWMA; nuclear stress test-small sized perfusion abnormality of mild severity of apical lateral wall which may represent small area of ischemia in circumflex artery territory vs. attenuation artifact -ROSEMARY -noted TSH, lipid panel, A1c -noted troponins, no significant delta Status: Acute Qualifiers: Chest pain type: unspecified Qualified Code(s): R07.9 - Chest pain, unspecified (3) Hypertension: -poorly controlled -as noted above -low salt diet as tolerated Status: Chronic Qualifiers: Hypertension type: essential hypertension Qualified Code(s): I10 - Essential (primary) hypertension (4) GERD (gastroesophageal reflux disease): -on PPI Status: Chronic Qualifiers: Esophagitis presence: esophagitis presence not specified Qualified Code(s): K21.9 - Gastro-esophageal reflux disease without esophagitis (5) Smoker: -1-2 PPD -nicotine replacement therapy -smoking cessation encouraged Status: Chronic (6) Morbid obesity: Status: Chronic Additional A&P Information -GI ppx with PPI -DVT ppx not needed as low risk, encourage ambulation -d/c IVF -Dispo: home -Code status: FULL code -due to need to more optimal control of BP, symptomatic malignant HTN and need for NTG drip, will change to inpatient status Attestations Medical Necessity Statement*: Patient requires hospitalization for management of symptomatic malignant hypertension, not requiring nitroglycerin drip for more optimal blood pressure control and continued close monitoring of hemodynamic status. Time Spent in Patient Care: Greater than 35 minutes (>than 50% of time spe nt in counselling and/or direct pt care on unit) . Coding Level of Care Code Acute Review Engineer for [facility] Fwd Diagnoses Hypertensive urgency I16.0 Chest pain R07.9 Chest pain type: unspecified Hypertension I10 Hypertension type: essential hypertension GERD (gastroesophageal reflux disease) K21.9 Esophagitis presence: esophagitis presence not specified Smoker F17.200 Morbid obesity E66.01
[2020-02-01] MEDS: nitroglycerin drip 50 MG/250 ML PREMIX IV (16:31)
--- NOTE | 2020-02-01 16:35 | PC.NURSE ---
BLOOD PRESSURES REMAIN ELEVATED. PATIENT COMPLAINING OF MILD CHEST PRESSURE AND A HEADACHE. DR CANTRELL NOTIFIED, ORDERED NITRO GTT.
[2020-02-01] MEDS: metoprolol tartrate 50 mg Tablet 75 MG PO (17:05)
--- NOTE | 2020-02-01 17:07 | PC.NURSE ---
PATIENT HEADACHE AND CHEST PRESSURE HAVE RESOLVED SINCE INITIATION OF NITRO DRIP. DR CANTRELL NOTIFIED. BLOOD PRESSURE SLOWLY DECREASING.
--- NOTE | 2020-02-01 17:37 | USCV_ITS ---
Blake Espino Age: 49 Gender: M : 1970 Exam Date: 02/01/2020 06:33 Ordering Phys: Brooklynn Jarrell MD Technologist: Azeem Mike [place] [facility] [place]: HTN BP: 148 / 99 HR: 66 Rhythm: Sinus Technical Quality: Fair MEASUREMENTS (Male / Female) Normal Values 2D ECHO LV Diastolic Diameter PLAX 4.8 cm 4.2 - 5.9 / 3.9 - 5.3 cm LV Systolic Diameter PLAX 3.0 cm IVS Diastolic Thickness 1.3 cm 0.6 - 1.0 / 0.6 - 0.9 cm IVS Systolic Thickness 1.9 cm LVPW Diastolic Thickness 1.5 cm 0.6 - 1.0 / 0.6 - 0.9 cm LVPW Systolic Thickness 1.8 cm LVOT Diameter 2.0 cm LV Ejection Fraction 2D Teich 65.8 % LV Ejection Fraction MOD 2C 58.8 % LV Ejection Fraction 2C AL 58.1 % LA Diameter 4.1 cm LA Width 4.5 cm LA Height 4.8 cm RA Width 4.3 cm RA Height 5.0 cm Aorta at Sinotubular Diameter 3.5 cm M-MODE LV Diastolic Diameter MM 5.3 cm 4.2 - 5.9 / 3.9 - 5.3 cm LV Systolic Diameter MM 3.3 cm LV Ejection Fraction MM Teich 67.2 % IVS Diastolic Thickness MM 1.5 cm 0.6 - 1.0 / 0.6 - 0.9 cm IVS Systolic Thickness MM 2.0 cm LVPW Diastolic Thickness MM 1.7 cm 0.6 - 1.0 / 0.6 - 0.9 cm LVPW Systolic Thickness MM 2.3 cm RV Diastolic Diameter MM 2.1 cm Aortic Annulus Diameter 3.9 cm LA Ao Ratio MM 1.0 MV E Point Septal Separation 1.3 cm DOPPLER AV Peak Velocity 124.0 cm/s LVOT Peak Velocity 97.0 cm/s AV Area Cont Eq vti 2.3 cm squared AV Area Cont Eq pk 2.5 cm squared MV Area PHT 5.0 cm squared Mitral E to A Ratio 0.9 MV E' Velocity 104.0 cm/s Mitral E to LV E' Septal Ratio 15.3 TR Peak Velocity 156.0 cm/s TR Peak Gradient 9.7 mmHg TV Peak E Velocity 104.0 cm/s Right Atrial Pressure 3.0 mmHg Pulmonary Artery Systolic Pressu 12.7 mmHg FINDINGS Left Ventricle Normal left ventricular size, systolic function and wall thickness, with no regional wall motion abnormalities. Normal left ventricular wall thickness. Normal diastolic filling pattern. Left ventricular ejection fraction is estimated at 60 %. Right Ventricle The right ventricle is normal in size and function. Right Atrium The right atrium is normal in size. Left Atrium The left atrium is normal in size. Mitral Valve Structurally normal mitral valve without significant stenosis or prolapse. There is no mitral regurgitation. Aortic Valve Structurally normal aortic valve without significant sclerosis or stenosis. There is no aortic regurgitation. Tricuspid Valve Structurally normal tricuspid valve without significant stenosis or regurgitation. Pulmonary artery systolic pressure is normal. Pulmonic Valve Structurally normal pulmonic valve without significant stenosis. There is no pulmonic regurgitation. Pericardium Normal pericardium without effusion. Aorta Normal ascending aorta dimension. CONCLUSIONS Normal transthoracic echocardiogram. There are no prior echocardiogram studies to compare. Dr. Bao Jewell MD (Electronically Signed) Final Date: 01 February 2020 08:50 S
--- NOTE | 2020-02-01 17:39 | NMCV_ITS ---
NM sofia perf SPECT r/s* [id number] Blake Espino Age: 49 Gender: M : 1970 Exam Date: 02/01/2020 07:14 Ordering Phys: Brooklynn Jarrell MD Technologist: LANDEN Chung Exam Location: [facility] [place] Indications: HIGH BLOOD PRESSURE STRESS TEST [facility] IMAGE PROTOCOL Rest/Stress 1 Lexiscan Day Radiopharmaceutical Dose (mCi) Administration Site Administered by Rest: Tc-99m 10.9 IV LANDEN Bruce Sestamibi Stress:Tc-99m 33.0 IV LANDEN Chung Sestamiximena Rest: 01-Feb-2020 60 Discovery 630 Stress: 01-Feb-2020 30 Discovery 630 0.4mg Lexiscan. Images obtained in supine and prone position. SPECT RESULTS Technical Quality: Excellent Raw Data Analysis: Normal Image Corrections: No attenuation or motion correction applied Summed Stress Score: 2 Summed Rest Score: 0 Summed Difference Score: 2 PERFUSION FINDINGS Small size perfusion abnormality of mild severity of apical lateral wall on stress images. FUNCTIONAL RESULTS (calculated via Gated SPECT) Stress Image LV EF (%): 50 Stress EDV (mL):199 TID: 1.12 Stress ESV (mL):100 FUNCTIONAL FINDINGS: The left ventricle is normal in size. Transient Ischemia Dilatation of 1.1. There is low normal left ventricular systolic function. The left ventricular ejection fraction is mildly reduced with a value of 50%. There is normal left ventricular wall thickening. Increased end-diastolic and end-systolic volumes. IMPRESSIONS 1. Small sized perfusion abnormality of mild severity of apical lateral wall on stress images. This may represent small area of ischemia in circumflex artery territory, however attenuation artifact cannot be completely ruled out. 2. The left ventricular ejection fraction is mildly reduced with a value of 50%. 3. There is normal left ventricular wall thickening. 4. Scan indicates low risk for cardiac events. Susanna Martin MD (Electronically Signed) Final Date: 01 February 2020 15:49 S
[2020-02-01] MEDS: atorvastatin 40 mg Tablet PO (20:15)
--- NOTE | 2020-02-01 20:30 | PC.NURSE ---
Received report from ALEX Lipscomb. Pt resting in bed with no complaints or needs at this time. See assessment.
[2020-02-01] MEDS: LORazepam 2 mg/mL INJ 1 mL 1 MG IVP (21:14)
[2020-02-02] VITALS (32 sets, daily range): BP systolic 124–198; BP diastolic 74–118; PULSE 56–86; RESP 13–23; TEMP 36.3–36.8; O2SAT 94–96
[2020-02-02] MEDS: losartan 50 mg Tablet 100 MG PO (09:31)
[2020-02-02] MEDS: metoprolol tartrate 50 mg Tablet 75 MG PO ×2 (09:31→17:14)
[2020-02-02] MEDS: tamsulosin 0.4 mg Capsule PO (09:32)
[2020-02-02] MEDS: doxycycline 100 mg Tablet PO ×2 (09:32→17:13)
[2020-02-02] MEDS: nicotine 21 mg Patch 1 PATCH TRANSDERMA (09:32)
[2020-02-02] MEDS: pantoprazole DR 40 mg Tablet PO (09:32)
[2020-02-02] MEDS: amlodipine 10 mg Tablet PO (09:33)
--- NOTE | 2020-02-02 09:38 | PC.CHAP ---
Pastoral Care Encounter/Spiritual Assessment Type of Contact [] Declined pickling drum operator visit [] Patient/Family/Request visit [] Outpatient visit [] Follow-up visit [] Physician referral [] Code/Alert [x] Routine visit [] Staff referral [] Actively dying [] Patient sleeping [] Family support [] [] Out of room [] Palliative care [] [] Receiving care in room [] Pre-surgical visit [] Trauma [] Long length of stay [] ICU visit [] Other: Relational/Emotional Strength [] Patient feels connected with others/family/visitors/staff [] Distress [] Loneliness/isolation [] Abandonment Spirituality of Patient [] Person of Faviola [] Attends Church of their Faviola [] Believes in Prayer [] Reads Bible or Muslim materials [] There are Spiritual issues to be addressed Store Hand Interventions [x] Prayer [] Active listening [] Non-anxious presence [] Spiritual/emotional support [] Crisis/trauma care [] Spiritual counseling [] Bereavement support [] Provided bereavement packet [] Provided Bible/devotional materials [] Provided toy/stuffed animal, coloring book to patient or family member [] Provided Communion [] Anointing/[place] [] Salvation [x] Completed spiritual assessment [] Other: Impact on Illness or Injury [] Angry [] Fearful [] Anxious [] Often cries [] Exhaustion [] Unable to work [] Unable to attend cheondoism [] Unable to walk/stand [] Unable to read [] Unable to drive [] Unable to eat/drink [] Unable to sleep [] Unable to be with family [] Patient intubated [] Other: Summary Prayed with patient for head aches. Current meds being revisited Time spent with patient 10 min
[2020-02-02] MEDS: cloNIDine 0.1 mg Tablet PO ×2 (10:30→17:14)
[2020-02-02] MEDS: sennosides-docusate Tablet 2 TAB PO ×2 (10:47→17:16)
[2020-02-02] MEDS: polyethylene glycol 3350 Pkt 17 gm PO (10:48)
--- NOTE | 2020-02-02 10:48 | P.PN_ITS ---
Subjective Subjective: Interval history: Blood pressure continues to be challenging to control and continues to require nitroglycerin drip, increased doses of oral antihypertensives. Noted to be tachypneic overnight though on room air. Heart rate controlled. Renal function within normal limits. Noted low Mg which will be replaced. Patient seen several times throughout the day, BP closely mon itored, able to wean off NTG drip and most recent BP-164/98. He reports feeling better today particularly compared to yesterday afternoon, no chest pain, YANEZ resolved. Medications: Reviewed: Yes Medication Review Details: Active Medications Generic Name Dose Route Start Last Admin Trade Name Freq PRN Reason Stop Dose Admin Acetaminophen 650 mg 01/31/20 17:37 Tylenol PO Q6H PRN Mild/Mod Pain Or Temp >/= 101 Amlodipine Besylat e 10 mg 02/02/20 09:00 02/02/20 09:33 Norvasc PO 10 mg DAILY PARAS Administration Atorvastatin Calci um 40 mg 02/01/20 21:00 02/01/20 20:15 Lipitor PO 40 mg BEDTIME PARAS Administration Clonidine HCl 0.1 mg 02/01/20 14:55 02/02/20 10:30 Catapres PO 0.1 mg BID PARAS Administration Doxycycline Monohy drate 100 mg 01/31/20 18:00 02/02/20 09:32 Vibramycin PO 100 mg BID PARAS Administration Protocol Hydralazine HCl 10 mg 01/31/20 17:40 02/01/20 13:37 Apresoline IVP 10 mg Q4H PRN Administration Elevated BP Nitroglycerin/Dext corazno 50 mg in 250 mls @ 0 mls/hr 02/01/20 16:15 02/02/20 06:[address] ip IV 15 mcg/min .Q0M PARAS 4.5 mls/hr Titration Protocol Per Protocol Magnesium Sulfate 2 gm in 50 mls @ 50 mls/hr 02/02/20 11:03 Magnesium Sulfat e Premix IV 02/02/20 12:02 ONCE ONE Lorazepam 1 mg 02/01/20 14:51 02/01/20 21:14 Ativan IVP 1 mg Q8H PRN Administration ANXIETY Losartan Potassium 100 mg 02/02/20 09:00 02/02/20 09:31 Cozaar PO 100 mg DAILY PARAS Administration Metoprolol Tartrat e 75 mg 02/01/20 18:00 02/02/20 09:31 Lopressor PO 75 mg BID PARAS Administration Morphine Sulfate 2 mg 01/31/20 17:37 Morphine IVP Q4H PRN SEVERE PAIN Nicotine 1 patch 01/31/20 18:45 02/02/20 09:32 Nicoderm 21 Mg P atch TRANSDERMA 1 patch DAILY PARAS Administration Nitroglycerin 0.4 mg 01/31/20 12:02 01/31/20 12:40 Nitrostat SUBLINGUAL 0.4 tab Q5M PRN Administration CHEST PAIN Ondansetron HCl 4 mg 01/31/20 17:37 Zofran IVP Q8H PRN vomiting, or N/V if npo Ondansetron HCl 4 mg 02/01/20 07:14 Zofran IVP Q2M PRN NAUSEA Pantoprazole Sodiu m 40 mg 02/01/20 09:00 02/02/20 09:32 Protonix PO 40 mg DAILY PARAS Administration Polyethylene Glyco l 17 gm 02/02/20 10:30 02/02/20 10:48 Miralax PO 17 gm DAILY PARAS Administration Senna/Docusate Sod ium 2 tab 02/02/20 10:30 02/02/20 10:47 Senna-S PO 2 tab BID PARAS Administration Tamsulosin HCl 0.4 mg 01/31/20 18:00 02/02/20 09:32 Flomax PO 0.4 mg BID PARAS Administration No Known Allergies Allergy (Verified 01/31/20 12:17) Vitals/I&O/Wt Last Vital Signs Temp 97.4 F L 02/02/20 07:11 Pulse 72 02/02/20 07:11 Resp 20 H 02/02/20 07:11 BP 178/98 02/02/20 07:11 Pulse Ox 94 02/02/20 07:11 02/01/20 02/02/20 02/02/20 22:59 06:59 14:59 Intake Total 1116.900 / 1356.900 156.875 / 1513.775 240 / 240 Output Total 0 / 0 Balance 1116.900 / 1356.900 156.875 / 1513.775 240 / 240 Weight last 48 hrs Weight 127.777 kg Weight 132.948 kg Weight 132.931 kg Physical Exam Const: COMMON NORMALS: no acute distress, patient oriented x3 and alert GENERAL APPEARANCE: cooperative NUTRITIONAL APPEARANCE: obese morbidly obese ORIENTATION/CONSCIOUSNESS: Yes awake HENMT: COMMON NORMALS: normocephalic, atraumatic, hearing grossly normal bilaterally and moist oral mucous membranes HEAD & SCALP: normocephalic and atraumatic Eye: COMMON NORMALS: Equal, round and reactive pupils present, EOMs intact bilaterally and conjunctivae normal CONJUNCTIVA: Yes conjunctivae normal PUPIL: Yes Equal, round and reactive pupils present Neck/C-Spine: COMMON NORMALS: full ROM GENERAL: Yes normal visual inspection and Yes trachea midline Chest: COMMONS NORMALS: normal palpation of entire chest wall CHEST: Yes Symmetrical chest wall rise Resp: COMMON NORMALS: normal respiratory effort, No retractions, No use of accessory muscles and clear to auscultation bilaterally EFFORT & INSPECTION: Yes able to speak in complete sentences, Yes symmetric chest movement and No tachypneic AUSCULTATION: clear to auscultation bilaterally OTHER: -on RA Cardio: COMMON NORMALS: regular rate, regular rhythm, S1 normal heart sound present, S2 normal heart sound present and No murmurs present (Cardio) RATE: regular rate RHYTHM: regular rhythm HEART SOUNDS: S1 normal heart sound present and S2 normal heart sound present OTHER: -hypertensive GI: COMMON NORMALS: Normal to inspection, nondistended, normoactive bowel sounds present, Soft to palpation and non-tender INSPECTION: Yes central obesity PALPATION: Yes Soft to palpation Extremity: COMMON NORMALS: normal to inspection, full ROM, no clubbing, cyanosis or edema and no pedal edema Neuro: COMMON NORMALS: patient oriented x3, moves all extremities, no focal motor deficits and no sensory deficits noted SENSORIUM/ORIENTATION: Yes alert Psych: COMMON NORMALS: mental status grossly normal, Normal thought process present, cooperative, normal affect and speech normal SPEECH: Yes normal speech THOUGHT PROCESS: Normal thought process present Skin: COMMON NORMALS: no rashes or lesions noted, no jaundice, no petechiae and no mottling GENERAL SKIN EXAM: no rashes or lesions noted Data : 02/01/20 05:43 02/01/20 05:43 A&P Assessment and plan (1) Hypertensive urgency: -has had poorly controlled BP for quite some time -BP better controlled overnight, now uncontrolled -continue to monitor vital signs closely, would avoid aggressive BP control -telemetry monitoring -on BB, ARB, CCB, Clonidine, hydralazine PRN; may consider addition of diuretic next if more agents needed -with continued significant hypertension, chest pain, YANEZ; on NTG drip; wean as tolerated -repeat CXR due to noted tachypnea -check US abdomen to r/o AAA -does not meet strict criteria to screen for renovascular HTN as he has been uncontrolled hypertensive consistently, has normal renal function, prior US abdomen from several yrs ago shows symmetrical kidneys, normal aorta -suspect underlying MORGAN, sleep study as outpatient; undiagnosed and untreated MORGAN may make BP control challenging -if continued hypertensive urgency despite multiple agents, would consider cardiology consult. Status: Acute (2) Chest pain: -has significant risk factors for ACS including morbid obesity, HTN, chronic smoker, EtOH use -no prior cardiac workup; Echo: EF=60%, no RWMA; nuclear stress test-small sized perfusion abnormality of mild severity of apical lateral wall which may represent small area of ischemia in circumflex artery territory vs. attenuation artifact -ROSEMARY -noted TSH, lipid panel, A1c -noted troponins, no significant delta Status: Acute Qualifiers: Chest pain type: unspecified Qualified Code(s): R07.9 - Chest pain, unspecified (3) Hypertension: -poorly controlled -as noted above -low salt diet as tolerated Status: Chronic Qualifiers: Hypertension type: essential hypertension Qualified Code(s): I10 - Essential (primary) hypertension (4) GERD (gastroesophageal reflux disease): -on PPI Status: Chronic Qualifiers: Esophagitis presence: esophagitis presence not specified Qualified Code(s): K21.9 - Gastro-esophageal reflux disease without esophagitis (5) Smoker: -1-2 PPD -nicotine replacement therapy -smoking cessation encouraged Status: Chronic (6) Morbid obesity: Status: Chronic Additional A&P Information -GI ppx with PPI -DVT ppx not needed as low risk, encourage ambulation -off IVF -Dispo: home -Code status: FULL code Attestations Medical Necessity Statement*: Patient requires hospitalization for continued management of hypertensive urgency with need for continued close monitoring of hemodynamic status, on nitroglycerin drip and multiple oral antihypertensives. Time Spent in Patient Care: 16 - 35 minutes (>than 50% of time spent in counselling and/or direct pt care on unit) . Coding Level of Care Code Acute Ethanol Maintenance Mechanic for Chg Fwd Exam Comprehensive Diagnoses Hypertensive urgency I16.0 Chest pain R07.9 Chest pain type: unspecified Hypertension I10 Hypertension type: essential hypertension GERD (gastroesophageal reflux disease) K21.9 Esophagitis presence: esophagitis presence not specified Smoker F17.200 Morbid obesity E66.01
--- NOTE | 2020-02-02 10:58 | USCV_ITS ---
Blake Espino Age: 49 Gender: M : 1970 Exam Date: 02/02/2020 14:19 Ordering Phys: Brooklynn Jarrell MD Technologist: Colleen Ruiz [place] [facility] [place]: AAA SCREENING HISTORY: Diameter (cm) AP x Transverse x Length Velocity (cm/s) Waveform Prox Aorta: 2.11 x 2.26 x 39.70 Mid Aorta: 2.55 x 2.28 x 37.70 Distal Aorta: 2.16 x 1.98 x 83.40 Right Iliac Prox: 0.96 x 1.29 x 64.60 Left Iliac Prox: 1.17 x 0.84 x 66.00 Stent Prox Landing x x Aneurysmal Sac Max x x Lt Lat Sac Dim Rt Lat Sac Dim Stent Dist Landing x x Right Iliac Stent x x Left Iliac Stent x x Right Renal Art Left Renal Art FINDINGS: Technically difficult study because of the poor ultrasonic window. Mildly ectatic mid abdominal aorta. Normal Doppler flow velocity CONCLUSIONS 1. Slightly ectatic mid abdominal aorta 2. No definite aneurysm 3. Normal proximal common iliac artery dimensions 4. No evidence of any significant stenosis, based on the Doppler flow velocities 5. Technically difficult study because of the poor ultrasonic window Dr Thiago Cerna MD [facility] (Electronically Signed) Final Date: 05 February 2020 08:03 S
--- NOTE | 2020-02-02 10:58 | XR_ITS ---
WS: [id number] XR chest 1V portable [id number] REASON FOR EXAM: shortness of breath, tachypnea FINDINGS: Comparisons were made to January 31, 2020. There is borderline cardiomegaly seen. There is chronic changes in both lung bang. Chronic emphysema this changes with fibrosis are noted. [place] there was no evidence of pneumonia, pleural effusion, pulmonary edema. XR/XR chest 1V portable [id number] IMPRESSION: Chronic obstructive pulmonary disease with fibrosis.
[2020-02-02] MEDS: magnesium sulfate premix 2 GM/50 ML PIGGYBACK IV (11:41)
[2020-02-02 13:42] LABS: Cortisol Random 9.56 ug/mL (2.47-19.5)
--- NOTE | 2020-02-02 20:00 | PC.NURSE ---
Received shift report from ALEX Montoya. Pt resting in bed comfortably with no complaints or needs at this time. See shift assessment. Will continue to monitor.
[2020-02-02] MEDS: atorvastatin 40 mg Tablet PO (20:19)
[2020-02-02] MEDS: hyDRALAzine 20 mg/mL INJ 1 mL 10 MG IVP (21:54)
[2020-02-02] MEDS: acetaminophen 325 mg Tablet 650 MG PO (21:54)
[2020-02-02] MEDS: LORazepam 2 mg/mL INJ 1 mL 1 MG IVP (23:53)
[2020-02-03] VITALS (15 sets, daily range): BP systolic 115–180; BP diastolic 77–120; PULSE 60–75; RESP 13–22; TEMP 36.5–37; O2SAT 93–97
--- NOTE | 2020-02-03 02:00 | PC.NURSE ---
BP 194/114. Pt c/o headache. Tylenol and IV hydralazine given at 2153. BP continued to run 150s-170s/90s. Pt c/o not being able to sleep. IV ativan given at 3. BP now 115/77.
[2020-02-03] MEDS: pantoprazole DR 40 mg Tablet PO (08:02)
[2020-02-03] MEDS: sennosides-docusate Tablet 2 TAB PO (08:02)
[2020-02-03] MEDS: polyethylene glycol 3350 Pkt 17 gm PO (08:02)
[2020-02-03] MEDS: hyDRALAzine 20 mg/mL INJ 1 mL 10 MG IVP (08:02)
[2020-02-03] MEDS: metoprolol tartrate 50 mg Tablet 75 MG PO (08:03)
[2020-02-03] MEDS: amlodipine 10 mg Tablet PO (08:03)
[2020-02-03] MEDS: doxycycline 100 mg Tablet PO (08:04)
[2020-02-03] MEDS: nicotine 21 mg Patch 1 PATCH TRANSDERMA (08:04)
[2020-02-03] MEDS: losartan 50 mg Tablet 100 MG PO (08:04)
[2020-02-03] MEDS: cloNIDine 0.1 mg Tablet PO (08:04)
[2020-02-03] MEDS: tamsulosin 0.4 mg Capsule PO (08:04)
[2020-02-03] MEDS: hydroCHLOROthiazide 25 mg Tablet PO (14:56)
--- NOTE | 2020-02-03 15:38 | PM.PN ---
Subjective Subjective: Interval history: BP seems to be better controlled later in the day then peaks in the AM, feels much better today, has been ambulatory, has had 2 BMs. Feels well enough to go home. Counseled extensively on need for consistent BP control to establish baseline, need for compliance with medications, and need to follow up consistently with his PCP. Medications: Reviewed: Yes Medication Review Details: Active Medications Generic Name Dose Route Start Last Admin Trade Name Freq PRN Reason Stop Dose Admin Acetaminophen 650 mg 01/31/20 17:37 02/02/20 21:54 Tylenol PO 650 mg Q6H PRN Administration Mild/Mod Pain Or Temp >/= 101 Amlodipine Besylat e 10 mg 02/02/20 09:00 02/03/20 08:03 Norvasc PO 10 mg DAILY PARAS Administration Atorvastatin Calci um 40 mg 02/01/20 21:00 02/02/20 20:19 Lipitor PO 40 mg BEDTIME PARAS Administration Clonidine HCl 0.2 mg 02/03/20 18:00 Catapres PO BID PARAS Doxycycline Monohy drate 100 mg 01/31/20 18:00 02/03/20 08:04 Vibramycin PO 100 mg BID PARAS Administration Protocol Hydralazine HCl 10 mg 01/31/20 17:40 02/03/20 08:02 Apresoline IVP 10 mg Q4H PRN Administration Elevated BP Hydrochlorothiazid e 25 mg 02/03/20 14:10 02/03/20 14:56 Hctz PO 25 mg DAILY PARAS Administration Nitroglycerin/Dext corazon 50 mg in 250 mls @ 0 mls/hr 02/01/20 16:15 02/02/20 11:[address] ip IV 0 mcg/min .Q0M PARAS 0 mls/hr Titration Protocol Per Protocol Lorazepam 1 mg 02/01/20 14:51 02/02/20 23:53 Ativan IVP 1 mg Q8H PRN Administration ANXIETY Losartan Potassium 100 mg 02/02/20 09:00 02/03/20 08:04 Cozaar PO 100 mg DAILY PARAS Administration Metoprolol Tartrat e 75 mg 02/01/20 18:00 02/03/20 08:03 Lopressor PO 75 mg BID PARAS Administration Morphine Sulfate 2 mg 01/31/20 17:37 Morphine IVP Q4H PRN SEVERE PAIN Nicotine 1 patch 01/31/20 18:45 02/03/20 08:04 Nicoderm 21 Mg P atch TRANSDERMA 1 patch DAILY PARAS Administration Nitroglycerin 0.4 mg 01/31/20 12:02 01/31/20 12:40 Nitrostat SUBLINGUAL 0.4 tab Q5M PRN Administration CHEST PAIN Ondansetron HCl 4 mg 01/31/20 17:37 Zofran IVP Q8H PRN vomiting, or N/V if npo Ondansetron HCl 4 mg 02/01/20 07:14 Zofran IVP Q2M PRN NAUSEA Pantoprazole Sodiu m 40 mg 02/01/20 09:00 02/03/20 08:02 Protonix PO 40 mg DAILY PARAS Administration Polyethylene Glyco l 17 gm 02/02/20 10:30 02/03/20 08:02 Miralax PO 17 gm DAILY PARAS Administration Senna/Docusate Sod ium 2 tab 02/02/20 10:30 02/03/20 08:02 Senna-S PO 2 tab BID PARAS Administration Tamsulosin HCl 0.4 mg 01/31/20 18:00 02/03/20 08:04 Flomax PO 0.4 mg BID PARAS Administration No Known Allergies Allergy (Verified 01/31/20 12:17) Vitals/I&O/Wt Last Vital Signs Temp 98.6 F 02/03/20 11:19 Pulse 65 02/03/20 14:16 Resp 13 02/03/20 14:16 BP 151/97 02/03/20 14:16 Pulse Ox 97 02/03/20 14:16 02/03/20 02/03/20 02/03/20 06:59 14:59 22:59 Intake Total 100 / 963.625 720 / 720 Balance 100 / 138.625 720 / 720 Weight last 48 hrs Weight 128.503 kg Weight 127.777 kg Weight 132.948 kg Physical Exam Const: COMMON NORMALS: no acute distress, patient oriented x3 and alert GENERAL APPEARANCE: cooperative NUTRITIONAL APPEARANCE: obese morbidly obese ORIENTATION/CONSCIOUSNESS: Yes awake HENMT: COMMON NORMALS: normocephalic, atraumatic, hearing grossly normal bilaterally and moist oral mucous membranes HEAD & SCALP: normocephalic and atraumatic Eye: COMMON NORMALS: Equal, round and reactive pupils present, EOMs intact bilaterally and conjunctivae normal CONJUNCTIVA: Yes conjunctivae normal PUPIL: Yes Equal, round and reactive pupils present Neck/C-Spine: COMMON NORMALS: full ROM GENERAL: Yes normal visual inspection and Yes trachea midline Chest: COMMONS NORMALS: normal palpation of entire chest wall CHEST: Yes Symmetrical chest wall rise Resp: COMMON NORMALS: normal respiratory effort, No retractions, No use of accessory muscles and clear to auscultation bilaterally EFFORT & INSPECTION: Yes able to speak in complete sentences, Yes symmetric chest movement and No tachypneic AUSCULTATION: clear to auscultation bilaterally OTHER: -on RA Cardio: COMMON NORMALS: regular rate, regular rhythm, S1 normal heart sound present, S2 normal heart sound present and No murmurs present (Cardio) RATE: regular rate RHYTHM: regular rhythm HEART SOUNDS: S1 normal heart sound present and S2 normal heart sound present OTHER: -hypertensive GI: COMMON NORMALS: Normal to inspection, nondistended, normoactive bowel sounds present, Soft to palpation and non-tender INSPECTION: Yes central obesity PALPATION: Yes Soft to palpation Extremity: COMMON NORMALS: normal to inspection, full ROM, no clubbing, cyanosis or edema and no pedal edema Neuro: COMMON NORMALS: patient oriented x3, moves all extremities, no focal motor deficits and no sensory deficits noted SENSORIUM/ORIENTATION: Yes alert Psych: COMMON NORMALS: mental status grossly normal, Normal thought process present, cooperative, normal affect and speech normal SPEECH: Yes normal speech THOUGHT PROCESS: Normal thought process present Skin: COMMON NORMALS: no rashes or lesions noted, no jaundice, no petechiae and no mottling GENERAL SKIN EXAM: no rashes or lesions noted Data : 02/01/20 05:43 02/01/20 05:43 A&P Assessment and plan (1) Hypertensive urgency: -has had poorly controlled BP for quite some time -BP better controlled overnight, now uncontrolled -continue to monitor vital signs closely, would avoid aggressive BP control -telemetry monitoring -on BB, ARB, CCB, Clonidine, hydralazine PRN; add low dose HCTZ -with continued significant hypertension, chest pain, YANEZ; off NTG drip -repeat CXR due to noted tachypnea -US abdomen to r/o AAA done, report pending -does not meet strict criteria to screen for renovascular HTN as he has been uncontrolled hypertensive consistently, has normal renal function, prior US abdomen from several yrs ago shows symmetrical kidneys, normal aorta -suspect underlying MORGAN, sleep study as outpatient; undiagnosed and untreated MORGAN may make BP control challenging -if continued hypertensive urgency despite multiple agents, would consider cardiology evaluation Status: Acute (2) Chest pain: -has significant risk factors for ACS including morbid obesity, HTN, chronic smoker, EtOH use -no prior cardiac workup; Echo: EF=60%, no RWMA; nuclear stress test-small sized perfusion abnormality of mild severity of apical lateral wall which may represent small area of ischemia in circumflex artery territory vs. attenuation artifact -ROSEMARY -noted TSH, lipid panel, A1c -noted troponins, no significant delta Status: Acute Qualifiers: Chest pain type: unspecified Qualified Code(s): R07.9 - Chest pain, unspecified (3) Hypertension: -poorly controlled -as noted above -low salt diet as tolerated Status: Chronic Qualifiers: Hypertension type: essential hypertension Qualified Code(s): I10 - Essential (primary) hypertension (4) GERD (gastroesophageal reflux disease): -on PPI Status: Chronic Qualifiers: Esophagitis presence: esophagitis presence not specified Qualified Code(s): K21.9 - Gastro-esophageal reflux disease without esophagitis (5) Smoker: -1-2 PPD -nicotine replacement therapy -smoking cessation encouraged Status: Chronic (6) Morbid obesity: Status: Chronic Additional A&P Information -GI ppx with PPI -DVT ppx not needed as low risk, encourage ambulation -off IVF -Dispo: home -Code status: FULL code Attestations Medical Necessity Statement*: Discharge home today. Time Spent in Patient Care: 16 - 35 minutes (>than 50% of time spent in counselling and/or direct pt care on unit). Coding Level of Care Code Acute Visual Merchandising Coordinator for Chg Fwd Diagnoses Hypertensive urgency I16.0 Chest pain R07.9 Chest pain type: unspecified Hypertension I10 Hypertension type: essential hypertension GERD (gastroesophageal reflux disease) K21.9 Esophagitis presence: esophagitis presence not specified Smoker F17.200 Morbid obesity E66.01
--- NOTE | 2020-02-03 16:00 | PC.NURSE ---
Discharge to home Instructed pt to follow-up with his pcp as scheduled. Educated pt on his new prescribed meds actions, dosing, timing, frequency and possible s/e. Pt verbalizes understanding and teaches back some of his meds. Informed pt that he will have a sleep study as ordered outpatient to check if he does not have any MORGAN that cause his HTN. Pt verbalizes understanding. Called his new Rx at [facility] pharmacy in [place]. Discharge packets provided to pt. ushered pt via wheelchair to his private vehicle.
--- NOTE | 2020-02-05 12:05 | PC.RESP ---
Smoking Cessation information and a schedule of classes to patient.
[2020-02-06 06:53] LABS: E. Chaffeensis AB IGG <1:64; E. Chaffeensis AB IGM <1:20; RMSF IGG NOT DETECTED; RMSF IGM NOT DETECTED
== END 2020-02-03 16:00 | disposition home or self-care (01) | DRG 305 ==
LOC: ER 15:38 → CSU 16:01
PROVIDERS: Admitting Provider Family Medicine; Emergency Provider Emergency Medicine; Visit Provider Family Medicine
DX: I16.0 Hypertensive urgency (principal); I10 Essential (primary) hypertension; E66.01 Morbid (severe) obesity due to excess calories; F17.210 Nicotine dependence, cigarettes, uncomplicated; N40.0 Benign prostatic hyperplasia without lower urinary tract symptoms; K21.9 Gastro-esophageal reflux disease without esophagitis; G47.33 Obstructive sleep apnea (adult) (pediatric); Z72.89 Other problems related to lifestyle
CPT/HCPCS: 12345; 36415; 70450; 71045; 76706; 78452; 80048; 80053; 80061; 82533; 83036; 83735; 84443; 84484; 85025; 86618; 86666; 86757; 93005; 93017; 93306; 96375; 99283; A9500; G0378; J0360; J1885; J2060; J2405; J2785; J3475; J3490; J7030

== ENCOUNTER 2020-02-29 09:00 | Outpatient (CLI) | payer OTHER, SELFPAY ==
--- NOTE | 2020-02-29 09:12 | CT_ITS ---
WS: [id number] CT scan of the abdomen with Oral and IV contrast. Additional two-dimensional coronal and sagittal rec onstruction was performed. 02/29/2020 Clinical Data: ABD PAIN, CONSTIPATION, GERD Comparison: None. DLP: 853.[address] scans at [facility] use at least one of these dose optimization techniques: automat ed exposure control; mA and/or kV adjustment per patient size (includes targeted exams where dose is matched to clinical indication); or iterative reconstruction. Findings: The lower lungs show no nodules, masses or effusions. The liver, gallbladder, spleen, pancreas are normal. The adrenal glands show bilateral adenomatous e nlargement. The kidneys show equal bilateral contrast excretion with no cyst or masses. No renal calculi or hydro nephrosis is seen. The abdominal aorta is normal in size with minimal calcification in the wall.. No appendicitis or diverticulitis is seen. Oral contrast is in the stomach and small bowel and there is no bowel dilatation. No abscess, ascites, adenopathy, mass, obstruction or free air is seen. The lower thoracic vertebral bodies show degenerative arthritic change. CT/CT abdomen w con* [id number] Impression: Negative for acute intra-abdominal abnormalities.
[2020-02-29] MEDS: iohexol 300 mg/mL 50 mL Btl PO (09:14)
[2020-02-29] MEDS: iohexol 300 mg/mL 100 mL Btl IV (10:04)
== END 2020-02-29 09:01 | disposition home or self-care (01) ==
LOC: RADWPI 09:05
PROVIDERS: Family Provider Nurse Practitioner Family; PCP Nurse Practitioner Family; Visit Provider Nurse Practitioner Family
DX: R10.9 Unspecified abdominal pain (principal); K59.00 Constipation, unspecified; K21.9 Gastro-esophageal reflux disease without esophagitis
CPT/HCPCS: 74160; Q9967

== ENCOUNTER 2020-05-08 20:00 | Outpatient (CLI) | payer OTHER, SELFPAY | END 2020-05-08 20:01 | disposition home or self-care (01) | LOC: SLEEP 05-09 09:24 | PROVIDERS: Family Provider Nurse Practitioner Family; PCP Nurse Practitioner Family; Visit Provider Family Medicine | DX: G47.33 Obstructive sleep apnea (adult) (pediatric) (principal) | CPT/HCPCS: 95810 ==

== ENCOUNTER 2022-02-20 15:31 | Outpatient (CLI) | payer OTHER, SELFPAY ==
--- NOTE | 2022-02-20 15:48 | XRR_ITS ---
PROCEDURE INFORMATION: Exam: XR Right Shoulder Exam date and time: 02/20/2022 3:53 PM Age: 51 years old Clinical indication: Pain; Shoulder; Right; Additional info: Acute pain of right shoulder TECHNIQUE: Imaging protocol: Radiologic exam of the Right shoulder. Views: 2 or more views. COMPARISON: CR XR chest 1V portable [id number] 02/02/2020 11:54 AM FINDINGS: Bones/joints: Normal. Soft tissues: Normal. XR/XR shoulder RT min 2V* [id number] IMPRESSION: No significant abnormality.
--- NOTE | 2022-02-20 15:48 | XRR_ITS ---
PROCEDURE INFORMATION: Exam: XR Cervical Spine Exam date and time: 02/20/2022 3:53 PM Age: 51 years old Clinical indication: Neck pain TECHNIQUE: Imaging protocol: Radiologic exam of the cervical spine. Views: 2 or 3 views. COMPARISON: CR XR chest 1V portable [id number] 02/02/2020 11:54 AM FINDINGS: Bones/joints: No fracture, malalignment or other acute abnormality is seen in the cervical spine. Chronic degenerative changes are present especially from C3-C7 with disc space narrowing sclerosis and osteophytes. There also degenerative changes in the facet joints. Soft tissues: Unremarkable. XR/XR cervical spine 3V* [id number] IMPRESSION: Chronic degenerative disease. No acute abnormality.
--- NOTE | 2022-02-20 15:48 | XRR_ITS ---
PROCEDURE INFORMATION: Exam: XR Complete Acute Abdomen Series Including Chest Exam date and time: 02/20/2022 3:53 PM Age: 51 years old Clinical indication: Abdominal pain; Generalized; Additional info: Generalized abdominal pain TECHNIQUE: Imaging protocol: Radiologic exam. Complete acute abdomen series, including 2 or more views of the abdomen and a single view chest. COMPARISON: CT abdomen w con* [id number] 02/29/2020 10:02 AM FINDINGS: Lungs: Normal. No consolidation. Pleural spaces: Normal. No pleural effusions. No pneumothorax. Heart/Mediastinum: Normal. No cardiomegaly. Gastrointestinal tract: Normal. No bowel dilation. Intraperitoneal space: Normal. No free air. Bones/joints: Normal. No acute fracture. Soft tissues: Chronic degenerative changes are present in the lower lumbar spine.. XR/XR acute abdomen series [id number] IMPRESSION: No acute findings.
--- NOTE | 2022-02-20 15:48 | XRR_ITS ---
PROCEDURE INFORMATION: Exam: XR Left Shoulder Exam date and time: 02/20/2022 3:53 PM Age: 51 years old Clinical indication: Pain; Shoulder; Left; Additional info: Acute pain of left shoulder TECHNIQUE: Imaging protocol: Radiologic exam of the Left shoulder. Views: 2 or more views. COMPARISON: CR XR chest 1V portable [id number] 02/02/2020 11:54 AM FINDINGS: Bones/joints: Normal. Soft tissues: Normal. XR/XR shoulder LT min 2V* [id number] IMPRESSION: No significant abnormality.
== END 2022-02-20 15:32 | disposition home or self-care (01) ==
PROVIDERS: PCP Nurse Practitioner Family; Visit Provider Nurse Practitioner Family
DX: R10.9 Unspecified abdominal pain (principal); M54.2 Cervicalgia; M25.512 Pain in left shoulder; M25.511 Pain in right shoulder
CPT/HCPCS: 72040; 73030; 74022